=== PATIENT | female | born 1930 | race Caucasian/White ===

== ENCOUNTER 2018-12-22 11:30 | Emergency (ER) | payer MEDICARE, OTHER ==
[2018-12-22 11:35] VITALS: BMI 25.3
[2018-12-22] MEDS ORDERED: XANAX0.25 MG (11:36)
[2018-12-22] MEDS ORDERED: CALCIUM 500 +1 EAC3 (11:36)
[2018-12-22] MEDS ORDERED: BAYER CHEWABLE81 MG (11:36)
[2018-12-22] MEDS ORDERED: ULTRAM50 MG (11:36)
[2018-12-22] MEDS ORDERED: LIPITOR10 MG (11:37)
[2018-12-22 13:34] VITALS: BP 167/88
== END 2018-12-22 13:40 | disposition home or self-care (01) ==
LOC: D.ER 11:30
DX: S09.90XA Unspecified injury of head, initial encounter (principal); W19.XXXA Unspecified fall, initial encounter; E78.5 Hyperlipidemia, unspecified